=== PATIENT | male | born 1975 | race Hispanic/Latino ===

== ENCOUNTER 2016-11-01 21:00 | Emergency (ER) | payer BC ==
[2016-11-01 22:41] VITALS: BMI 37.3
[2016-11-01 23:12] VITALS: RESP 18; TEMP 98.2
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
[2016-11-02 02:28] VITALS: BP 141/75; PULSE 82; O2SAT 98
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
--- NOTE | 2016-11-02 21:15 | US ---
PROCEDURE: Right lower extremity venous US HISTORY: Leg pain and swelling. Evaluate for DVT. PHYSICIAN(S): Corey Morales M.D. TECHNIQUE: Duplex sonography and color-flow Doppler with graded compression were used to evaluate the deep venous system of the right lower extremity. The exam is somewhat limited by body habitus. FINDINGS: The visualized deep venous system of the right lower extremity is sonographically normal and compressible. Normal waveforms and augmentation are seen. There is no sonographic evidence for deep venous thrombosis in the visualized segments of the right lower extremity. IMPRESSION: 1. No sonographic evidence for deep venous thrombosis in the visualized segments of the right lower extremity.
== END 2016-11-02 01:25 | disposition home or self-care (01) ==
LOC: ED 21:00
DX: S80.11XA Contusion of right lower leg, initial encounter (principal); X58.XXXA Exposure to other specified factors, initial encounter; Y93.89 Activity, other specified